=== PATIENT | female | born 1995 ===

== ENCOUNTER 2023-10-01 06:32 | Outpatient (REF) | payer OTHER, SELFPAY ==
--- NOTE | ~2023-10-01 | US_ITS ---
EXAMINATION: US PELVIS CLINICAL INFORMATION: Increased cramping, midcycle spotting, IUD. Irregular last menstrual period. COMPARISON: None available. TECHNIQUE: Ultrasound of the pelvis is performed using both transabdominal and transvaginal transducers along with Doppler. Transvaginal imaging is performed due to inadequate visualization transabdominally. FINDINGS: The uterus measures 8.9 x 3.8 x 5.7 cm, volume 101.1 mL. Right ovary measures 2.8 x 1.6 x 1.8 cm, volume 4.2 mL. Left ovary measures 2.5 x 1.9 x 2.9 cm, volume 7.1 mL. Endometrial thickness is 4 mm. No significant free fluid. Bilateral ovaries are grossly unremarkable. A 2.6 x 2.6 x 1.7 cm fibroid. A 3.2 x 3.6 x 5.2 cm fibroid. Visualization of the endometrium and IUD is limited due to shadowing from fibroids; however, imaged portion of the IUD appears to be located at the level of the endometrial cavity. US/US pelvic and transvaginal IMPRESSION: 1. Fibroid uterus. 2. Visualization of the endometrium and IUD is limited due to shadowing from fibroids; however, imaged portion of the IUD appears to be located at the level of the endometrial cavity. 3. Bilateral ovaries are grossly unremarkable.
== END 2023-10-01 06:33 | disposition home or self-care (01) ==
LOC: HO.UMASIMG 06:32
PROVIDERS: Visit Provider Nurse Practitioner Women's Health
DX: R10.2 Pelvic and perineal pain (principal); N92.6 Irregular menstruation, unspecified
CPT/HCPCS: 76830; 76856